=== PATIENT | male | born 1995 | race Caucasian/White ===

== ENCOUNTER 2017-03-31 08:39 | Day surgery (SDC) | payer OTHER ==
[~2017-03-31] VITALS: Ht 175.3 cm; Wt 112.9 kg
[2017-03-31 09:36] LABS: BASOPHILS 0.4 % (0-2); EOSINOPHILS 2.5 % (0-7); HEMATOCRIT 46.6 % (42.0-54.0); HEMOGLOBIN 16.2 g/dL (13.5-17.5); IMMATURE GRANULOCYTES 0.2 % (0-5); LYMPHOCYTES 22.6 % (15-50); MCH 30.7 pg (26.0-34.0); MCHC 34.8 g/dL (31.0-37.0); MCV 88.4 fL (80.0-100.0); MEAN PLATELET VOLUME 10.1 fL (7.4-10.4); MONOCYTES 7.5 % (2-11); NEUTROPHILS 66.8 % (40-80); PLATELET COUNT 244 10x3/uL (130-400); RBC 5.27 10x6/uL (4.20-6.10); RDW 12.5 % (11.5-14.5); WBC 11.5 10x3/uL (4.8-10.8)
[2017-03-31 09:40] VITALS: BP 132/82; Ht 175.3 cm; Wt 112.9 kg
[2017-03-31 09:51] LABS: CALC OSMOLALITY 284 mosm/kg (275-300); CARBON DIOXIDE 30.8 mmol/L (21.0-32.0); CHLORIDE - SERUM 104 mmol/L (98-107); CREATININE - SERUM 0.9 mg/dL (0.6-1.3); GLUCOSE 88 mg/dL (74-106); POTASSIUM - SERUM 4.3 mmol/L (3.5-5.1); SODIUM 143 mmol/L (136-145); UREA NITROGEN 15 mg/dL (7-18); eGFR NON AFRICAN AMERICAN > 90 mL/min (90-120)
[2017-03-31] MEDS ORDERED: HYDROCODONE-APA1 TAB PO (11:28)
--- NOTE | 2017-03-31 12:42 | NUR ---
1225 BACK FROM PILONODAL CYST BACK DRESSING C/D/I NO BLEEDING. PAIN A 2.
--- NOTE | 2017-03-31 13:42 | NUR ---
1255 FAMILY STATES THEY ARE LEAVING TO [place] AND THAT THEY TOLD DR. VINCENT THIS AND ARE NOT GOING TO BE HERE FOR HOME HEALTH, PARENTS STATED THEY TOLD THIS TO DR. VINCENT.
--- NOTE | 2017-03-31 13:46 | NUR ---
1325 FAMILY INSTRUCTED ON DOING WET TO DRY DRESSING AND NEEDS TO DO SALINE WET TO DRY DRESSING CHANGES DAILY. INSTRUCTED ON S/S OF INFECTION INCRERASE REDNESS SWELLING ODOR OR FEVER GREATER THAN 100.5. FAMILY STATED THEY WILL DO THEM AND STRESSED THE IMPORTANCE OF HANDWASHING AND FOLLOW UP APPOINTMENT.
--- NOTE | 2017-03-31 13:49 | NUR ---
1330 REPORT TO HARAPL CUELLAR.
--- NOTE | 2017-03-31 14:00 | NUR ---
IV REMOVED INTACT. DISCHARGE INSTRUCTIONS AND RX GIVEN. VOIDED WITHOUT DIFFICULTY. PARENTS STATE DR VINCENT KNOWS THAT WE ARE GOING TO [place] TOMORROW AND HE WILL NOT BE BACK UNTIL THE . STATES HE SAID WE CAN DO OUR OWN DRESSING CHANGES WITH WET TO DRY GUAZE AND NS. STATE. MOTHER STATES SHE HAS A SISTER THAT IS A NURSE THAT SHE CAN CALL FOR ASSISTANCE IF NEEDED.
--- NOTE | 2017-04-07 08:01 | OP ---
PATIENT NAME: BALDEMAR DOBBS MEDICAL RECORD: [id number] :97 LOCATION:[facility] ADMISSION DATE: SURGEON: DEEPAK VINCENT MD DATE OF OPERATION: 03/31/2017 PREOPERATIVE DIAGNOSIS: Pilonidal cyst. POSTOPERATIVE DIAGNOSIS: Pilonidal cyst. PROCEDURE: Pilonidal cystectomy. SURGEON: Deepak Vincent MD REPORT OF PROCEDURE: The patient was placed in the jackknife prone position, and the perianal region was prepped and draped in sterile fashion. We probed one of the small pits that was present. Upon doing this, it showed that the pilonidal cyst was extending superiorly. We opened up the skin in the midline using sharp dissection and as we came down into the cyst cavity, we noted there was a small amount of hair present. There was a lot of old mucousy type tissue. This tissue extended a significant way superiorly. We continued to advance our incision until we finally encompassed the entire cyst. The cyst was eventually completely removed and sent off for permanent specimen. The patient had another small area on the left medial gluteal crease, which was very friable and when penetrated revealed another small pilonidal cyst. This cyst was much smaller in size and was completely excised. At this point, we had a large opening in the midline of the gluteal crease. This was treated with electrocautery to stop any bleeding that was noted. We then irrigated out the wound thoroughly with normal saline. We inspected one last time and assured there was no sign of any further tracking from the cyst cavities. The abscess cavities all appeared to be completely removed. We then marsupialized the tissue by bringing the skin edges down to the sacral fascia. This was done using interrupted 2-0 Vicryl. We then packed the wound with damp Kerlix and covered with dry 4 x 4s and an ABD pad. COMPLICATIONS: None. CONDITION: Stable. ANESTHESIA: General endotracheal. BLOOD LOSS: Minimal. TRANSINT:[id number] Voice Confirmation ID: [id number] DOCUMENT ID: [id number] DEEPAK VINCENT MD at 0801 CC: [id number] DICTATION DATE: 03/31/17 1132 SERVICE WORKER HELPER: 03/31/17 1146 [facility] 03/31/17 [facility] [address] [place] [address]
[2017-04-14 18:10] LABS: AEROBE ID Final report (())
== END 2017-03-31 14:00 | disposition home or self-care (01) ==
LOC: D.OPS 08:39
PROVIDERS: Surgery
DX: L05.91 Pilonidal cyst without abscess (principal); Z01.812 Encounter for preprocedural laboratory examination